=== PATIENT | male | born 1965 | race Caucasian/White ===

== ENCOUNTER → 2021-12-16 | Outpatient (CLI) | payer BC, SELFPAY ==
--- NOTE | 2021-12-16 13:47 | CT_ITS ---
INDICATION: Fever and cough, possible pneumonia EXAMINATION: CT CHEST WITHOUT CONTRAST - CT Chest W/O Contrast Injection TECHNIQUE: Helically acquired images were obtained of the chest. A radiation dose optimization technique was used for this scan. IV Contrast dosage and agent: None. COMPARISON: None. FINDINGS: LUNGS, PLEURA AND LARGE AIRWAYS: Lung windows show the lungs to be normally expanded. No organized infiltrate, or suspicious noncalcified mass or nodule. Fibrotic scarring noted in the medial aspect of the right lower lobe. No pleural effusion or thickening. No pneumothorax. THYROID: No thyroid lesions. HEART AND PERICARDIUM: Heart size is normal. No pericardial effusion. CORONARY ARTERIES: Coronary artery calcification is seen. VESSELS: Thoracic aorta is not dilated. MEDIASTINUM AND AC: No mediastinal or hilar adenopathy. Esophagus is unremarkable. No hiatal hernia. UPPER ABDOMEN: Limited cuts through the upper abdomen show nonobstructing stone in the left kidney. BONES: Degenerative bony changes without acute fracture, lytic or blastic bony lesion. CT/Chest without Contrast IMPRESSION: No acute pulmonary process Calcified coronary vessels No suspicious adenopathy Degenerative bony changes Electronically Signed: Darek Charlton MD at 9:56 EDT ,
== END | disposition home or self-care (01) ==
PROVIDERS: PCP Family Medicine; Referring Provider Family Medicine; Visit Provider Family Medicine
DX: R93.89 Abnormal findings on diagnostic imaging of other specified body structures (principal)
CPT/HCPCS: 71250